=== PATIENT | female | born 1985 ===

== ENCOUNTER 2023-05-16 19:58 | Emergency (ER) | payer SELFPAY ==
--- NOTE | 2023-05-16 21:17 | PC.NURSE ---
Patient called to triage three times. No answer each time.
== END 2023-05-16 21:17 | disposition left against medical advice (07) ==
LOC: ANHED 21:25
DX: Z53.21 Procedure and treatment not carried out due to patient leaving prior to being seen by health care provider (principal)
CPT/HCPCS: 99199